=== PATIENT | female | born 1975 | race Caucasian/White ===

== ENCOUNTER 2016-11-19 08:25 | Emergency (ER) | payer MEDICAID ==
[~2016-11-19] VITALS: Ht 157.5 cm; Wt 93.0 kg
[2016-11-19 08:51] VITALS: BP 137/97
== END 2016-11-19 11:22 | disposition home or self-care (01) ==
LOC: ER 09:24
DX: B34.9 Viral infection, unspecified (principal); Z90.49 Acquired absence of other specified parts of digestive tract; Z98.890 Other specified postprocedural states
CPT/HCPCS: 82962; 99282

== ENCOUNTER 2017-10-18 12:01 | Emergency (ER) | payer MEDICAID ==
[~2017-10-18] VITALS: Ht 154.9 cm; Wt 95.0 kg
[2017-10-18] MEDS ORDERED: KETOROLAC 30MG/ML VIAL IV STA (13:21)
[2017-10-18 13:29] LABS: BASOPHILS % 0.6 % (0.0-2.0); EOSINOPHILS % 7.4 % (0.0-5.0); HEMATOCRIT. 38.8 % (36.0-48.0); HEMOGLOBIN. 13.5 g/dL (12.0-16.0); LYMPHOCYTES % 16.3 % (20.0-50.0); MEAN CORPUSCULAR HEMOGLOBIN 29.7 pg (28.0-32.0); MEAN CORPUSCULAR VOLUME 85.3 fL (81.0-99.0); MEAN PLATELET VOLUME 8.5 fl (7.4-10.4); MONOCYTES % 4.9 % (2.0-8.0); NEUTROPHILS % 70.8 % (40.0-76.0); PLATELET 289 x1000/uL (130-400); RED BLOOD CELL COUNT 4.55 mill/uL (4.2-5.4); RED CELL DISTRIBUTION WIDTH 13.7 % (11.6-14.6)
[2017-10-18 13:30] LABS: CHLORIDE 105 mEq/L (98-107)
[2017-10-18 13:43] LABS: B-HCG QUANTITATIVE < 1 mIU/mL (<3)
[2017-10-18 16:49] VITALS: BP 116/76
== END 2017-10-18 16:56 | disposition home or self-care (01) ==
LOC: ER 12:01
DX: N93.8 Other specified abnormal uterine and vaginal bleeding (principal); Z90.49 Acquired absence of other specified parts of digestive tract
CPT/HCPCS: 36415; 76830; 76856; 80048; 81025; 84702; 85025; 86850; 86900; 86901; 96374; 99285; J1885

== ENCOUNTER 2017-12-07 12:27 | Emergency (ER) | payer MEDICAID ==
[~2017-12-07] VITALS: Ht 157.5 cm; Wt 97.0 kg
[2017-12-07] MEDS ORDERED: IBUPROFEN 600MG TABLET PO ONE (13:00)
[2017-12-07 13:27] VITALS: BP 124/73
== END 2017-12-07 14:52 | disposition home or self-care (01) ==
LOC: ER 12:42
DX: M79.675 Pain in left toe(s) (principal); Z98.890 Other specified postprocedural states; W50.2XXA Accidental twist by another person, initial encounter; Y93.01 Activity, walking, marching and hiking; Y92.89 Other specified places as the place of occurrence of the external cause; Y99.8 Other external cause status
CPT/HCPCS: 73630; 81025; 99284